=== PATIENT | male | born 1930 | race Caucasian/White ===

== ENCOUNTER 2020-11-11 11:23 | Observation (INO) | payer MEDICARE ==
[2020-11-11] VITALS (7 sets, daily range): BP systolic 126–135; BP diastolic 58–65
[~2020-11-11] VITALS: Ht 165.1 cm; Wt 78.0 kg
[~2020-11-11 11:23] MED LIST: ASPIRIN EC81 MG PO; FERROUS GLUCON324 MG PO; IBUPROFEN200 MG PO; LEVEMIR100 UNIT/1 SQ; LISINOPRIL10 MG PO; METFORMIN HCL500 MG PO; NOVOLOG MI100 UNITS/ SC; NOVOLOG100 UNITS1 SQ; OMEPRAZOLE20 MG PO; TAMSULOSIN HCL0.4 MG PO
[2020-11-11] MEDS ORDERED: MIDAZOLAM HCL 2 MG/2 ML VIAL ONE (11:45)
[2020-11-11] MEDS ORDERED: LIDOCAINE HCL 2% LOCAL 20 ML VIAL ONE (11:46)
[2020-11-11] MEDS ORDERED: FENTANYL CITRATE/PF 100MCG/2 ML INJ ONE (11:46)
[2020-11-11] MEDS ORDERED: GENTAMICIN SULFATE 40 MG/ML 2 ML VIAL ONE (11:46)
[2020-11-11] MEDS ORDERED: SODIUM CHLORIDE 0.9% 1000ML 2,000 ML ONE (11:47)
[2020-11-11] MEDS ORDERED: SODIUM CHLORIDE 0.9% 250ML 250 ML ONE (11:47)
[2020-11-11] MEDS ORDERED: SODIUM CHLORIDE 0.9% 500ML 500 ML ONE (11:47)
[2020-11-11] MEDS ORDERED: Vancomycin IV 1 GM VIAL ONE (11:47)
[2020-11-11 12:03] LABS: BASOPHILS # (AUTO) 0.1 (0.0-0.1); BASOPHILS % 1.1 % (0.0-1.0); EOSINOPHILS # (AUTO) 0.1 (0.0-0.4); EOSINOPHILS % 0.8 % (0.0-6.0); HEMATOCRIT 39.7 % (38.2-49.6); HEMOGLOBIN 12.8 g/dL (14.0-18.0); LYMPHOCYTES # (AUTO) 1.7 (1.0-3.2); LYMPHOCYTES % 22.8 % (18.0-39.1); MEAN CORPUSCULAR HEMOGLOBIN 31.2 pg (28-32); MEAN CORPUSCULAR HGB CONC 32.2 g/dL (31-35); MEAN CORPUSCULAR VOLUME 96.8 fL (81-99); MONOCYTES # (AUTO) 0.6 (0.2-0.8); MONOCYTES % 8.2 % (4.4-11.3); NEUTROPHILS % 66.8 % (38.7-80.0); PLATELET COUNT 219 x10e3/uL (140-360); RED CELL DISTRIBUTION WIDTH 13.7 % (11.7-14.4)
[2020-11-11 12:21] LABS: INR 0.95; PROTHROMBIN TIME 12.9 seconds (11.9-14.5)
[2020-11-11 12:27] LABS: CALCIUM 8.9 mg/dL (8.4-10.2); CREATININE, SERUM 0.95 mg/dL (0.72-1.25)
[2020-11-11] MEDS ORDERED: CLOPIDOGREL75 MG PO (12:46)
[2020-11-11] MEDS ORDERED: BASAGLAR K100 UNIT/1 SQ (12:56)
[2020-11-11] MEDS ORDERED: FUROSEMIDE40 MG PO (13:00)
[2020-11-11] MEDS ORDERED: [UNRECOGNIZED DRUG - OTHER] PO (13:00)
[2020-11-11] MEDS ORDERED: METOPROLOL TART25 MG PO (13:01)
[2020-11-11] MEDS ORDERED: POTASSIUM CHLO20 ME2 PO (13:03)
[2020-11-11] MEDS ORDERED: ATORVASTATIN CA20 MG PO (13:05)
[2020-11-11] MEDS ORDERED: LIDOCAINE 1% W/EPINEPHRINE 20 ML VIAL ONE ×2 (14:13→14:29)
[2020-11-11] MEDS: ACETAMINOPHEN/CODEINE 300MG - 30MG TAB PO PRN (20:24)
[2020-11-11] MEDS: MINOCYCLINE HCL 50 MG CAP PO SCH (20:35)
[2020-11-11] MEDS ORDERED: DEXTROSE 50% SYRINGE 50 ML IV PRN (22:00)
[2020-11-11] MEDS: METOPROLOL TARTRATE 25 MG TAB PO SCH (22:00)
[2020-11-11] MEDS ORDERED: INSULIN GLARGINE 100 UNITS/ML VIAL SQ SCH (22:00)
[2020-11-11] MEDS ORDERED: TAMSULOSIN HCL 0.4 MG CAP PO SCH (22:00)
[2020-11-12] VITALS: BP 119/53
[2020-11-12 04:00] VITALS: BP 128/56
[2020-11-12] MEDS: ACETAMINOPHEN/CODEINE 300MG - 30MG TAB PO PRN (06:01)
[2020-11-12] MEDS ORDERED: PANTOPRAZOLE SOD 40 MG TABEC PO SCH (07:30)
[2020-11-12 07:37] VITALS: BP 127/59
[2020-11-12 09:00] VITALS: BP 127/59
[2020-11-12] MEDS ORDERED: CLOPIDOGREL BISULFATE 75 MG TAB PO SCH (09:00)
[2020-11-12] MEDS ORDERED: ASPIRIN 81 MG ENTERIC COATED PO SCH (09:00)
[2020-11-12] MEDS ORDERED: FUROSEMIDE 40 MG TAB PO SCH (09:00)
[2020-11-12] MEDS: INSULIN LISPRO 100 UNIT/1 ML 3ML VIAL SQ SCH ×2 (09:14→11:35)
[2020-11-12] MEDS: METOPROLOL TARTRATE 25 MG TAB PO SCH (09:14)
[2020-11-12] MEDS: MINOCYCLINE HCL 50 MG CAP PO SCH (09:15)
[2020-11-12] MEDS ORDERED: MINOCYCLINE HCL50 MG PO (10:12)
[2020-11-12] MEDS ORDERED: tylenol #3 PO (10:12)
[2020-11-12 12:03] VITALS: BP 119/60
[2020-11-12] MEDS ORDERED: ATORVASTATIN 20 MG TAB PO SCH (21:00)
== END 2020-11-12 12:27 | disposition home or self-care (01) ==
LOC: CATH LAB 11:23 → CATH LAB V 12:24 → MED/SURG3 15:20
PROVIDERS: ADMIT Internal Medicine; ATTEND Internal Medicine
DX: Z45.02 Encounter for adjustment and management of automatic implantable cardiac defibrillator (principal); I42.9 Cardiomyopathy, unspecified; Z20.822 Contact with and (suspected) exposure to COVID-19
CPT/HCPCS: 33230; 36415 ×2; 80048; 82948 ×2; 85025; 85610; 99251; C1721; C1769; G0378 ×2; J1580; J1815; J2250; J3010; J3370; J7030; J7040; J7050; S0164; U0002; 33263; J2001